=== PATIENT | female | born 1960 | race Caucasian/White ===

== ENCOUNTER → 2018-04-10 | Outpatient (CLI) | payer MEDICAID | LOC: FIMAGING 13:47 | PROVIDERS: ATTEND Internal Medicine | DX: M25.531 Pain in right wrist (principal) ==

== ENCOUNTER → 2018-09-24 | Outpatient (CLI) | payer MEDICAID | LOC: FIMAGING 15:01 → EDSTATUS 15:03 | PROVIDERS: ATTEND Internal Medicine | DX: M54.2 Cervicalgia (principal); S16.1XXS Strain of muscle, fascia and tendon at neck level, sequela ==

== ENCOUNTER → 2018-11-22 | Outpatient (CLI) | payer MEDICAID | LOC: FIMAGING 11:13 | PROVIDERS: ATTEND Internal Medicine | DX: M43.12 Spondylolisthesis, cervical region (principal); M50.30 Other cervical disc degeneration, unspecified cervical region ==

== ENCOUNTER → 2019-01-11 | Outpatient (CLI) | payer MEDICAID | LOC: FIMAGING 10:51 | PROVIDERS: ATTEND Internal Medicine | DX: M54.2 Cervicalgia (principal); R20.2 Paresthesia of skin; M50.20 Other cervical disc displacement, unspecified cervical region; V89.2XXD Person injured in unspecified motor-vehicle accident, traffic, subsequent encounter ==